=== PATIENT | female | born 1965 | race Caucasian/White ===

== ENCOUNTER → 2016-05-29 | Outpatient (CLI) | payer OTHER ==
--- NOTE | 2016-05-29 14:22 | DIAGNOSTIC IMAGING REPORT ---
LYMPHOSCINTIGRAPHY CLINICAL HISTORY: Right breast cancer. PROCEDURE: Using standard sterile technique, 4 intradermal and one deep injection of 0.5 mCi of Lymphoseek was placed in the right breast. The patient tolerated the procedure well. There were no immediate complications. The patient was subsequently transported to the surgical suite. No imaging was obtained at the referring physician's request. IMPRESSION: Injection of 0.5 mCi of Lymphoseek in the right breast. Electronically signed by: David Kiran M.D. 05/29/2016 2:21 PM Dictated Date/Time: 05/29/2016 2:21 PM
== END | disposition home or self-care (01) ==
LOC: C.NUCL 08:23
PROVIDERS: ATTEND Surgery
DX: C50.911 Malignant neoplasm of unspecified site of right female breast (principal)

== ENCOUNTER 2022-06-24 03:30 | Inpatient (IN) ==
[2022-06-24] MEDS ORDERED: fentaNYL citrate PF 100 MCG/2 ML VIAL IV STA (03:39)
--- NOTE | 2022-06-24 03:44 | Emergency Department Note ---
History of Present Illness General Chief complaint: Cardiac Assessment Time Seen by Provider: 06/24/22 03:32 History of Present Illness 57-year-old female presents emergency department with chest and back pain that started earlier this evening. Patient today had adjustments with a chiropractor in her back and had her back cracked. Patient then was at [facility] emergency department for SVT and received a medication that lowered her heart rate. Patient reportedly was told that she may have had an elevation in her troponin and they wanted to repeat it however her and her decided to leave. Patient called EMS tonight for substernal chest pressure and back pain. Patient denies arm pain jaw pain shortness of breath nausea vomiting. Patient has a prior history of SVT no other cardiac history. Patient was given 481 mg aspirin prior to arrival she was given 2 nitro prior to arrival he states the pain is intermittent spasm-like pain in her chest and back. There were no other mitigating or alleviating factors Allergies Allergy/AdvReac Type Severity Reaction Status Date / Time No Known Allergies Allergy Unverified 06/24/22 04:57 Past Med/Surg History Social History Smoking Status: Current every day smoker Tobacco Type: Cigarettes Feels Safe at Home: Yes Immunizations: Past medical history includes SVT, breast cancer Review of Systems A total of 10 systems reviewed and were otherwise negative Cardiovascular: + chest pain Physical Exam Vital Signs Vital Signs - 24 hr 06/24/22 03:34 06/24/22 03:34 06/24/22 03:37 Pulse Rate 83 91 H Pulse Rate from SpO2 Sensor Pulse Rhythm Regular Respiratory Rate 24 Blood Pressure Blood Pressure Mean Pulse Oximetry 96 Oxygen Delivery Method Room Air Sepsis Recent Fever Within 48 Hours No Sepsis New/Unexplained Change in Mental Status N/A Sepsis Action Taken by Nursing No Action Required 06/24/22 04:00 06/24/22 04:33 06/24/22 05:02 Pulse Rate 86 91 H 89 Pulse Rate from SpO2 Sensor 88 90 Pulse Rhythm Respiratory Rate 19 23 24 Blood Pressure 133/75 119/74 138/79 Blood Pressure Mean 94 89 98 Pulse Oximetry 94 96 95 Oxygen Delivery Method Room Air Room Air Room Air Sepsis Recent Fever Within 48 Hours Sepsis New/Unexplained Change in Mental Status Sepsis Action Taken by Nursing 06/24/22 05:30 Pulse Rate 94 H Pulse Rate from SpO2 Sensor 95 H Pulse Rhythm Respiratory Rate 24 Blood Pressure 121/73 Blood Pressure Mean 89 Pulse Oximetry 92 Oxygen Delivery Method Room Air Sepsis Recent Fever Within 48 Hours Sepsis New/Unexplained Change in Mental Status Sepsis Action Taken by Nursing GENERAL: Patient is awake alert in no acute distress patient is resting comfortably and showing no signs of anxiety EYES: The conjunctivae are clear. The pupils are round and reactive. EARS, NOSE, MOUTH AND THROAT: The nose is without any evidence of any deformity. Mucous membranes are moist. Tongue is midline. NECK: The neck is nontender and supple. RESPIRATORY: Normal respiratory effort is noted there is no evidence of wheezing rhonchi or rales CARDIOVASCULAR: Regular rate and rhythm noted there no murmurs rubs or gallops normal S1 normal S2. GASTROINTESTINAL: The abdomen is soft. Abdomen is nontender. BACK: No midline tenderness or or step-off noted range of motion in flexion extension as well as rotation no signs of muscle spasm noted MUSCULOSKELETAL/EXTREMITIES: There is no evidence of gross deformity full range of motion is noted in the hips and shoulders. Calves are nontender SKIN: There is no obvious evidence of any rash. There are no petechiae, pallor or cyanosis noted. NEUROLOGIC: Patient is awake alert and oriented x3 strength is symmetric Psych normal affect Course Reevaluation(s) Reevaluation #1: Patient resting in no distress. Patient has an elevated troponin, started on IV heparin, patient has received aspirin and nitro and was given IV fentanyl in the emergency department Time: 04:33 Consultations Consultation #1: Case was discussed with the [facility] at 440am -we will also add a CT chest; patient will be admitted to the [facility] service Time: 06:05 Administered Medications Heparin Sodium/Dextrose (Heparin Sodium/Dextrose) 25,000 units in 500 mls @ 20 mls/hr IV .Q24H [facility]; Protocol Stop: 07/24/22 04:59 Last Admin: 06/24/22 05:03 Dose: 1,000 units/hr, 20 mls/hr Documented By: OLIVIA Co-signed By: KURT Discontinued Medications Fentanyl Citrate (Fentanyl Citrate 100 Mcg/2 Ml Vial) 50 mcg IV NOW STA Stop: 06/24/22 03:40 Last Admin: 06/24/22 03:48 Dose: 50 mcg Documented By: KURT Heparin Sodium (Porcine) (Heparin Sod (Porcine) 1000 Unit/Ml) 4,000 units IV NOW ONE Stop: 06/24/22 05:01 Last Admin: 06/24/22 05:03 Dose: 4,000 units Documented By: OLIVIA Co-signed By: KURT Heparin Sodium/Dextrose (Heparin Iv Adult Wt-Based Standard With Bolus Protocol) 1 each IV NOW STA; Protocol Stop: 06/24/22 04:33 Last Admin: 06/24/22 05:03 Dose: Not Given Documented By: OLIVIA Miscellaneous Information (Patient's Allergy Info Needs Entered) 1 each N/A NOW STA Stop: 06/24/22 04:49 Last Admin: 06/24/22 05:03 Dose: 1 each Documented By: OLIVIA Critical Care Time Critical Care Time: Yes Total Critical Care Time: 35 I have personally spent greater than 35 minutes of critical care time in the direct management of this patient. This includes bedside care, interpretation of diagnostic studies, and testing, discussion with consultants, patient, and family members, and other required patient management activities. These minutes are in excess of all separately billable procedures. Medical Decision Making Medical Records Attestation: I reviewed the patient's medical records. Home Medications Current Medication List: was personally reviewed by me Laboratory Data Attestation: I reviewed the patient's lab results. Patient has a mild leukocytosis and an elevated troponin 06/24/22 03:35 06/24/22 03:35 Lab Results 06/24/22 06/24/22 06/24/22 Range/Units 03:35 03:35 03:35 WBC 12.46 H (4.8-10.8) K/ul RBC 4.65 (4.20-5.40) M/uL Hgb 13.1 (12.0-16.0) g/dl Hct 39.2 (37.0-47.0) % MCV 84.3 (80.0-100.0) fL MCH 28.2 (25.0-34.0) pg MCHC 33.4 (32.0-36.0) g/dL RDW Std Deviation 41.9 (36.4-46.3) fL RDW Coeff of Conrado 13.7 (11.5-14.5) % Plt Count 245 (130-400) K/uL MPV 10.8 (9.4-12.4) fL Immature Gran % (Auto) 0.4 % Neut % (Auto) 76.6 % Lymph % (Auto) 13.7 % [place] % (Auto) 6.9 % Eos % (Auto) 1.9 % Baso % (Auto) 0.5 % Neut # (Auto) 9.54 H (1.40-6.50) K/uL Lymph # (Auto) 1.71 (1.2-3.4) K/uL [place] # (Auto) 0.86 H (0.11-0.59) K/uL Eos # (Auto) 0.24 (0-0.50) K/uL Baso # (Auto) 0.06 (0-0.2) K/uL Immature Gran # (Auto) 0.05 (0.01-0.20) K/uL PT 10.3 (9.0-12.0) Seconds INR 1.0 (0.9-1.1) APTT 27.8 (21.0-31.0) Seconds PTT Ratio 1.0 Sodium 140 (136-145) mmol/L Potassium 4.2 (3.5-5.1) mmol/L Chloride 110 H (98-107) mmol/L Carbon Dioxide 23 (21-32) mmol/L Anion Gap 7 (3-11) BUN 15 (6-23) mg/dl Creatinine 0.83 (0.6-1.2) mg/dl Est Cr Clr Drug Dosing Not Reportable Est GFR ( Amer) 89.5 ml/min Est GFR (Non-Af Amer) 77.2 ml/min BUN/Creatinine Ratio 18.1 (10-20) Glucose 116 H (70-99(Fasting)) mg/dl Calcium 8.8 (8.5-10.1) mg/dl Total Bilirubin 0.5 (0.2-1.0) mg/dl AST 19 (13-39) U/L ALT 15 (7-52) U/L Alkaline Phosphatase 78 (34-104) U/L Troponin I High Sens 681.3 H* (0-14) pg/ml Total Protein 6.7 (6.0-8.3) gm/dl Albumin 4.3 (3.4-5.0) gm/dl Globulin 2.4 L (2.5-4.0) gm/dl Albumin/Globulin Ratio 1.8 (0.9-2) Lipase 17 (11-82) U/L SARS-CoV-2, RNA, NAAT (NEGATIVE) 06/24/22 Range/Units 05:06 WBC (4.8-10.8) K/ul RBC (4.20-5.40) M/uL Hgb (12.0-16.0) g/dl Hct (37.0-47.0) % MCV (80.0-100.0) fL MCH (25.0-34.0) pg MCHC (32.0-36.0) g/dL RDW Std Deviation (36.4-46.3) fL RDW Coeff of Conrado (11.5-14.5) % Plt Count (130-400) K/uL MPV (9.4-12.4) fL Immature Gran % (Auto) % Neut % (Auto) % Lymph % (Auto) % [place] % (Auto) % Eos % (Auto) % Baso % (Auto) % Neut # (Auto) (1.40-6.50) K/uL Lymph # (Auto) (1.2-3.4) K/uL [place] # (Auto) (0.11-0.59) K/uL Eos # (Auto) (0-0.50) K/uL Baso # (Auto) (0-0.2) K/uL Immature Gran # (Auto) (0.01-0.20) K/uL PT (9.0-12.0) Seconds INR (0.9-1.1) APTT (21.0-31.0) Seconds PTT Ratio Sodium (136-145) mmol/L Potassium (3.5-5.1) mmol/L Chloride (98-107) mmol/L Carbon Dioxide (21-32) mmol/L Anion Gap (3-11) BUN (6-23) mg/dl Creatinine (0.6-1.2) mg/dl Est Cr Clr Drug Dosing Est GFR ( Amer) ml/min Est GFR (Non-Af Amer) ml/min BUN/Creatinine Ratio (10-20) Glucose (70-99(Fasting)) mg/dl Calcium (8.5-10.1) mg/dl Total Bilirubin (0.2-1.0) mg/dl AST (13-39) U/L ALT (7-52) U/L Alkaline Phosphatase (34-104) U/L Troponin I High Sens (0-14) pg/ml Total Protein (6.0-8.3) gm/dl Albumin (3.4-5.0) gm/dl Globulin (2.5-4.0) gm/dl Albumin/Globulin Ratio (0.9-2) Lipase (11-82) U/L SARS-CoV-2, RNA, NAAT NEGATIVE (NEGATIVE) Imaging Data Attestation: I personally reviewed and interpreted this imaging study as follows: My Impression: Chest x-ray interpreted by me negative for mediastinum no obvious effusion no pneumothorax ECG Data Attestation: I personally reviewed and interpreted this ECG as follows: Additional Comments: EKG interpreted by me normal sinus rhythm rate of 84 nonspecific T wave abnormality normal intervals normal axis no obvious ST segment elevation or depression Telemetry was ordered by me, interpreted as normal sinus rhythm rate of 82 MDM Narrative Medical decision making differential diagnosis includes angina, unstable angina, acute coronary syndrome, acute [place], musculoskeletal chest and back pain, pleurisy, electrolyte abnormality Plan is to check labs, EKG, chest x-ray External medical records were reviewed from [facility] gave me report at bedside Patient has a heart score of 5 Patient has an elevated troponin, has been given aspirin prior to arrival, nitro; will be started on IV heparin Patient requires admission for acute coronary syndrome Impression & Plan Acute non-ST elevation myocardial infarction (NSTEMI), Chest pain Discharge Plan Visit Data Chief Complaint: Cardiac Assessment ED Provider: Yvan Carrion Discharge Problem: Acute non-ST elevation myocardial infarction (NSTEMI), Chest pain Patient Disposition: Admitted As Inpatient Forms Stand Alone Forms: My [facility] Referrals Referrals: Kalyan Biggs [Non-Staff] -
[2022-06-24 03:59] LABS: Basophils # (auto) 0.06 K/uL (0-0.2); Basophils % (auto) 0.5 %; Eosinophils # (auto) 0.24 K/uL (0-0.50); Eosinophils % (auto) 1.9 %; Hematocrit (blood only) 39.2 % (37.0-47.0); Hemoglobin 13.1 g/dl (12.0-16.0); Immature Granulocytes # (auto) 0.05 K/uL (0.01-0.20); Immature Granulocytes % (auto) 0.4 %; Lymphocytes # (auto) 1.71 K/uL (1.2-3.4); Lymphocytes % (auto) 13.7 %; Mean Corpuscular Hemoglobin 28.2 pg (25.0-34.0); Mean Corpuscular Hgb Conc 33.4 g/dL (32.0-36.0); Mean Corpuscular Volume 84.3 fL (80.0-100.0); Mean Platelet Volume 10.8 fL (9.4-12.4); Monocytes # (auto) 0.86 K/uL (0.11-0.59); Monocytes % (auto) 6.9 %; Neutrophils # (auto) 9.54 K/uL (1.40-6.50); Neutrophils % (auto) 76.6 %; Platelet Count 245 K/uL (130-400); RDW Coefficient of Variation 13.7 % (11.5-14.5); RDW Standard Deviation 41.9 fL (36.4-46.3); Red Blood Count 4.65 M/uL (4.20-5.40); White Blood Count 12.46 K/ul (4.8-10.8)
[2022-06-24 04:18] LABS: Alanine Aminotransferase 15 U/L (7-52); Albumin Globulin Ratio 1.8 (0.9-2); Albumin Level 4.3 gm/dl (3.4-5.0); Alkaline Phosphatase 78 U/L (34-104); Anion Gap 7 (3-11); Aspartate Aminotransferase 19 U/L (13-39); BUN Creatinine Ratio 18.1 (10-20); Bilirubin,Total 0.5 mg/dl (0.2-1.0); Blood Urea Nitrogen 15 mg/dl (6-23); Calcium 8.8 mg/dl (8.5-10.1); Carbon Dioxide 23 mmol/L (21-32); Chloride 110 mmol/L (98-107); Est GFR (African American) 89.5 ml/min; Est GFR (Non-African American) 77.2 ml/min; Globulin 2.4 gm/dl (2.5-4.0); Glucose 116 mg/dl (70-99(Fasting)); Lipase 17 U/L (11-82); Potassium 4.2 mmol/L (3.5-5.1); Sodium 140 mmol/L (136-145); Total Protein 6.7 gm/dl (6.0-8.3)
[2022-06-24 04:28] LABS: Troponin I High Sensitivity 681.3 pg/ml (0-14)
[2022-06-24] MEDS ORDERED: Heparin IV Adult Wt-Based Standard WITH Bolus Protocol IV STA (04:32)
[2022-06-24 04:34] LABS: Partial Thromboplastin Time 27.8 Seconds (21.0-31.0); Prothrombin Time 10.3 Seconds (9.0-12.0)
[2022-06-24] MEDS ORDERED: HEPARIN SOD (PORCINE) 1000 UNIT/ML IV ONE ×2 (04:47→05:00)
[2022-06-24] MEDS ORDERED: Patient's ALLERGY Info needs ENTERED STA (04:48)
--- NOTE | 2022-06-24 04:54 | History & Physical Report ---
Date of Service June 24, 2022 Assessment & Plan (1) Pleuritic chest pain: Plan: 57 y/o female w/ PMHx of SVT, tobacco use, and breast cancer who presents w/ new pleuritic chest pressure that radiates to her back. CTA PE protocol pending. Recent chiropractic treatment noted. ddx: msk, postviral pericarditis, aortic dissection, NSTEMI Has risk factors such as tobacco use. Started on Heparin bolus and drip in ED. Check a1c, lipids ECG w/o ST elevations. TTE Consider aspirin/statin Plan FEN/GI: NPO. NSS 80/hr x 2 bags. anticoag: heparin drip code: full dispo: med tele History of Present Illness Chief Complaint: chest pain Primary Care Provider: Enrike Saldaña 57 y/o female w/ PMHx of SVT, tobacco use, and breast cancer who had SVT most of yesterday during the day. Overnight, she woke up w/ new pleuritic midsternal chest pain described as pressure. It radiates to her back. She had 10/10 pain w/ taking deep breaths and felt dyspneic because of this, so she called EMS. She denies other associated symptoms. She has had recent URI symptoms w/ mild n onprod cough. She had back adjustment from chiropractor yesterday. Current pleuritic pain is 5/10. She is a current smoker. She denies hx of VTE. Patient went to [place] ED yesterday for her SVT and received treatemnt. She left AMA before her second trop was drawn. Reports hx of gastric ulcers in family. ED course: trop elev to 681.3. Heparin bolus and standard drip was started. Allergies Allergy/AdvReac Type Severity Reaction Status Date / Time No Known Allergies Allergy Unverified 06/24/22 04:57 Past Med/Surg History Medical History (Updated 06/24/22 @ 06:55 by Silvano Sahni MD) History of breast cancer Social History Smoking Status: Current every day smoker Tobacco Type: Cigarettes Second Hand Exposure: No; Do You Dip or Chew Tobacco: No; Tobacco Cessation Education Requested by Patient: No Hx Alcohol Use: No Hx Substance Use: No Preferred Language: Arabic Communication Ability: Effective Public Address Announcer Required: No Beliefs That Will Affect Care: None Current Living Situation: Alone and Spouse Other Information That Helps Us Care for You: No Feels Safe at Home: Yes Safety Concerns: Feels Safe At This Time Assistive Devices: None Review of Systems Review of Systems: All systems reviewed & are unremarkable except as noted in HPI & below Physical Exam Physical Exam: General: Grossly A&O. NAD. Cooperative. HEENT: Atraumatic, normocephalic. EOMI Pulm: CTAB. -wheezes, -rales, -rhonchi. No respiratory distress. Cardiac: RRR, 3/6 systolic murmur, chronic per patient. Radial pulses intact and symmetrical. No LE edema. Abdominal: Nontender, nondistended, soft. Msk: Moving all extrem. No reproducible sternal ttp. Results & Data Results & Data ([facility]) Vital Signs (Past 12 Hours) Vital Signs Pulse Resp Pulse Ox O2 Del Method 06/24/22 03:37 91 H 06/24/22 03:34 83 24 96 Room Air Laboratory Results Cardiac Enzymes 06/24/22 Range/Units 03:35 AST 19 (13-39) U/L Troponin I High Sens 681.3 H* (0-14) pg/ml Coagulation 06/24/22 Range/Units 03:35 PT 10.3 (9.0-12.0) Seconds APTT 27.8 (21.0-31.0) Seconds CBC 06/24/22 Range/Units 03:35 WBC 12.46 H (4.8-10.8) K/ul RBC 4.65 (4.20-5.40) M/uL Hgb 13.1 (12.0-16.0) g/dl Hct 39.2 (37.0-47.0) % Plt Count 245 (130-400) K/uL Neut # (Auto) 9.54 H (1.40-6.50) K/uL Lymph # (Auto) 1.71 (1.2-3.4) K/uL [place] # (Auto) 0.86 H (0.11-0.59) K/uL Eos # (Auto) 0.24 (0-0.50) K/uL Baso # (Auto) 0.06 (0-0.2) K/uL Comprehensive Metabolic Panel 06/24/22 Range/Units 03:35 Sodium 140 (136-145) mmol/L Potassium 4.2 (3.5-5.1) mmol/L Chloride 110 H (98-107) mmol/L Carbon Dioxide 23 (21-32) mmol/L BUN 15 (6-23) mg/dl Creatinine 0.83 (0.6-1.2) mg/dl Glucose 116 H (70-99(Fasting)) mg/dl Calcium 8.8 (8.5-10.1) mg/dl AST 19 (13-39) U/L ALT 15 (7-52) U/L Alkaline Phosphatase 78 (34-104) U/L Total Protein 6.7 (6.0-8.3) gm/dl Albumin 4.3 (3.4-5.0) gm/dl Intake and Output 06/23/22 06/23/22 06/24/22 14:59 22:59 06:59 Other: Weight 64.467 kg Weight Measurement Method Built in [facility] Patient Weight 06/24/22 06:59 Weight 64.467 kg Code Status & VTE Plan Code Status full VTE Prophylaxis Plan VTE Prophylaxis will be ordered: Yes Supervising Physician Co-Signing Physician Notes Attending addendum: I have physically seen this patient, have supervised the medical residents activities, and agree with the H&P unless as otherwise noted. Assessment and Plan: NSTEMI/tachycardia with palpitations- The patient will be admitted to telemetry for serial cardiac enzymes, serial EKG's, cardiac rhythm monitoring and a 2-D echocardiogram with Dopplers. Question whether elevated troponin is secondary to increased heart rate and/or ischemia Continue heparin IV drip following bolus as begun in the ED Check hemoglobin A1c and fasting lipid panel Aspirin 81 mg daily Order CTA of chest due to character of pain There is a family history of ulcers and a sister and mother. May need GI work- up if work-up above is negative Breast cancer- Initially diagnosed 5 years ago, and just recently completed tamoxifen earlier this year Right sacroiliac pain- Patient reports developed significant pain over this area when she helped move her sister 1 month ago in [place] She has been seen by chiropractic May need additional imaging Resident Activity Tracking Resident Involvement: Resident Care Provided Care Provided: Adult [facility]
[2022-06-24] MEDS ORDERED: HEPARIN SODIUM/DEXTROSE 25,000 UNITS/500 ML BAG IV SCH (05:00)
[2022-06-24] MEDS ORDERED: OPTIRAY 320 500ml IV ONE (06:36)
--- NOTE | 2022-06-24 07:20 | CT Scan Report ---
CT angio chest PE protocol CLINICAL HISTORY: PE TECHNIQUE: Multidetector row helical CT of the chest was performed with angiographic protocol. Lau l and sagittal reformations were obtained. Coronal and sagittal MIPS were obtained from the axial marissa a set and were submitted for review. Automated dose lowering techniques and/or adjustment according to patient size were utilized for this exam. CT DOSE: 246.17 mGy.cm Comparison: Comparison is made to chest radiograph 06/24/2022 FINDINGS: Lungs and pleura: There is a 3 mm pulmonary nodule in the right upper lobe (series 4 image 25). Heart and pericardium: Heart size is normal. No pericardial effusion. Vessels: No evidence of pulmonary embolism. Mild atherosclerotic calcifications are seen. Mediastinum and alysa: Unremarkable. Chest wall and lower neck: Unremarkable. Abdomen: A hiatal hernia is seen. Bones: Unremarkable. IMPRESSION: 1. No pulmonary embolus is seen. 2. Small pulmonary nodule as above. According to Fleischner criteria, no follow-up is required in lo w risk patients, in high-risk patients, a 12 month follow-up CT can be optionally performed. ACT 112: Negative or not required by law. Electronically signed by: Christopher Nunes M.D. 06/24/2022 7:18 AM
[2022-06-24] MEDS: SODIUM CHLORIDE 0.9% 1000ML 1,000 ML IV SCH ×2 (07:27→21:16)
--- NOTE | 2022-06-24 07:51 | XRay Report ---
XR chest 1V portable CLINICAL HISTORY: Chest pain, nonspecific TECHNIQUE: Single frontal radiograph of the chest was obtained. Comparison: None available at the time of this dictation. FINDINGS: No lines and tubes are seen. Cardiomegaly is noted. The lungs are clear. No evidence of pleural effus ion or pneumothorax. IMPRESSION: No acute chest disease. ACT 112: Negative or not required by law. Electronically signed by: Christopher Nunes M.D. 06/24/2022 7:49 AM
[2022-06-24 07:54] LABS: Chol HDL Ratio 2.6 (0-5)
[2022-06-24 08:24] LABS: Estimated Average Glucose 123 mg/dl; Hemoglobin A1C 5.9 % (4.5-5.6)
[2022-06-24] MEDS ORDERED: KETOROLAC TROMETHAMINE 15 MG/ML VIAL IV PRN (12:37)
[2022-06-24] MEDS ORDERED: ACETAMINOPHEN 325 MG TAB PO PRN (12:38)
[2022-06-24 12:49] LABS: Partial Thromboplastin Ratio 2.7
[2022-06-24 13:02] LABS: Partial Thromboplastin Time 74.9 Seconds (21.0-31.0)
--- NOTE | 2022-06-24 16:23 | XCELERA ---
[id number]
[2022-06-24] MEDS: HEPARIN SOD 5,000 UNIT/0.5 ML VIAL SQ SCH (21:32)
--- NOTE | 2022-06-24 22:31 | Billing Data ---
Date of Service June 24, 2022 Coding Level of Care Code 04033 INT INP/OBS CARE
[2022-06-25 07:27] LABS: Hemoglobin 11.6 g/dl (12.0-16.0); Mean Corpuscular Hgb Conc 34.1 g/dL (32.0-36.0); Mean Corpuscular Volume 82.1 fL (80.0-100.0); Mean Platelet Volume 11.1 fL (9.4-12.4); Platelet Count 182 K/uL (130-400); RDW Coefficient of Variation 13.4 % (11.5-14.5); RDW Standard Deviation 40.6 fL (36.4-46.3); Red Blood Count 4.14 M/uL (4.20-5.40); White Blood Count 4.84 K/ul (4.8-10.8)
[2022-06-25 07:45] LABS: BUN Creatinine Ratio 18.5 (10-20); Calcium 8.2 mg/dl (8.5-10.1); Creatinine Clr Calc Pharmacy 84.8 ml/min; Est GFR (African American) 112.6 ml/min; Est GFR (Non-African American) 97.2 ml/min; Potassium 3.5 mmol/L (3.5-5.1)
[2022-06-25] MEDS: HEPARIN SOD 5,000 UNIT/0.5 ML VIAL SQ SCH (08:24)
--- NOTE | 2022-06-25 09:29 | Cardiology Consultation ---
Date of Consultation June 25, 2022 Assessment & Plan (1) Aortic stenosis: (2) Paroxysmal SVT (supraventricular tachycardia): (3) Aortic regurgitation: (4) Pleuritic chest pain: (5) Elevated troponin: (6) Tobacco abuse: Plan ASSESSMENT/PLAN: 1. Severe aortic stenosis: Decreased exercise tolerance and dyspnea on exertion as an outpatient. Discussed diagnosis. Aortic valve is not well visualized but suspect bicuspid aortic valve given young age. Recommend transesophageal echo for definitive evaluation, which may then prompt evaluation of first-degree relatives if found to be congenitally abnormal valve. Recommend aortic valve replacement. Recommend cardiac catheterization. Risks and benefits discussed with her in detail. Transesophageal echo also discussed with her. She was agreeable to undergo the procedures but wished to have them done as an outpatient. 2. SVT: Requested ECG from [facility] for review. Recommend electrophysiology consultation with consideration of EP study and ablation. She is agreeable. She would like to have this done as an outpatient. SVT has occurred less than once yearly. Can start low-dose beta-demetra in the meantime. 3. Elevated troponin: Likely demand ischemia in the setting of SVT and severe aortic stenosis. No angina. Recommend aspirin 81 mg daily while awaiting coronary angiography. 4. Pleuritic chest pain: Chest pain is not consistent with ischemic heart disease or aortic stenosis. 5. Tobacco abuse: Recommended that she stop smoking. 6. Disposition: Suggested that her DAMION and cardiac catheterization can be performed while hospitalized. She declines and prefers to follow up as an outp atient in the next week or so. Recommended 911 for recurrent SVT symptoms, different or worsening chest pain, or shortness of breath. Cardiology outpatient office asked to set up DAMION and cardiac catheterization next week. Also requested electrophysiology consultation in the outpatient setting for consideration of EP study and ablation. Plan of care discussed with primary hospitalist, Dr. Jo. Highly complex medical issues. Thank you for allowing me to participate in the care of your patient. Please call for any other questions or concerns. Sincerely, Kartik Adrian M.D. History of Present Illness Reason for Consultation: Severe aortic stenosis Requesting Physician: Tamela Jo MD Attending Physician: Tamela Jo MD History of Present Illness Mrs. Means is a very pleasant 57-year-old female with a history significant for SVT, right-sided breast cancer (s/p XRT and lumpectomy), and tobacco abuse. She was hospitalized on 06/24/2022 after an episode of SVT noted at [facility]. She states that she has been experiencing intermittent palpitations and SVT for years. Her first episode was approximately 2015 while visiting her daughter at [place]. She went to the emergency department and received intravenous medication which quickly resolved the issue (presumably adenosine). Approximately 2 years later, she had another episode requiring intravenous medication. Approximately 2 years later, she was camping and had another episode and placed ice on her face, which resolved the palpitations. On 06/23/2022, she had an episode at approximately 1:30 PM which persisted for several hours. At approximately 8 PM she went to [facility]. She initially tried using ice and other Valsalva maneuvers such as squatting, but no improvement was noted. In the emergency department, she was told that she had SVT and received intravenous medication, once again presumably adenosine, as it quickly acted and corrected the arrhythmia. She recalls the ER physician mentioning a procedure to treat this. Her troponin was elevated but she did not want to wait for trending of the troponin and therefore left. Her daughter then convinced her to come to this hospital for further evaluation and sedation, as she was experiencing substernal chest discomfort described as a pressure was only pleuritic in nature, occurring with a deep breath and then would resolve with exhalation. She believes it is due to the fact that she was having back pain after helping move her sister out of her home. She then went to a chiropractor, who adjusted her back. She has chronic dyspnea with exertion. Exercise tolerance has declined over the past year. She denies shortness of breath at rest, orthopnea, syncope, near syncope, edema, or bleeding such as melena, hematochezia, or hematuria. She has not had any further chest discomfort. She has not had any further palpitations during this hospital stay. She was told that she had a murmur throughout her entire life. Her children have murmurs. Her sister was recently diagnosed with a murmur. She does not recall ever undergoing echo. She recalls having a cardiac catheterization 5 or 6 years ago in [place] but does not recall the indication and does not recall having any CAD. Review of systems: As above. Review of systems otherwise negative/unremarkable. Family history: Father in his 60s, but had CAD and underwent PCI and CABG. Paternal grandfather in his 60s. Sister newly diagnosed murmur in 2022. Social history: She has smoked since age of 11, currently 1 pack/day. No significant alcohol or drug abuse. She is and lives at home with her . 2 children (son and daughter). 5 grandchildren. Her presented to the bedside during consultation. Allergies Allergy/AdvReac Type Severity Reaction Status Date / Time No Known Allergies Allergy Unverified 06/24/22 04:57 Home Medications Medication Instructions Recorded Confirmed Type aspirin 81 mg capsule 81 mg PO DAILY #30 caps 06/25/22 Rx metoprolol succinate 25 mg 25 mg PO DAILY #30 tabs 06/25/22 Rx tablet,extended release 24 hr Patient History Medical History History of breast cancer Paroxysmal SVT (supraventricular tachycardia) Surgical History (Updated 06/25/22 @ 09:23 by Kingsley Adrian MD) S/P lumpectomy, right breast Social History Smoking Status: Current every day smoker Tobacco Type: Cigarettes Second Hand Exposure: No; Hx Alcohol Use: No Hx Substance Use: No Preferred Language: Moroccan Communication Ability: Effective Building Maintenance Superintendent Required: No Beliefs That Will Affect Care: None Current Living Situation: Alone and Spouse Feels Safe at Home: Yes Assistive Devices: None Physical Exam Physical Exam: Gen.: No acute distress. Alert and oriented. HEENT: Anicteric sclera. Neck: No JVD. Bilateral bruits vs radiation of cardiac murmur. Normal carotid upstrokes bilaterally. Cardiac: No ventricular heave. Regular rate and rhythm. Normal S1-S2. 2/6 late peaking systolic ejection murmur heard best at right upper sternal border. No rubs or gallops. Pulmonary: Clear to auscultation bilaterally without wheezes, rales, or rhonchi. Abdomen: Soft, nontender, nondistended, with normoactive bowel sounds. No bruits noted. Extremities: 1+ radial pulses bilaterally. 2+ posterior tibialis pulses bilaterally. No edema or cyanosis. Psychiatric: Affect appears appropriate. Results & Data ([facility]) Vital Signs (Past 12 Hours) Vital Signs Temp Pulse Pulse Resp BP Pulse Ox O2 Del Method 06/25/22 08:16 36.7 C 73 18 136/69 94 Room Air 06/25/22 07:46 Room Air 06/25/22 02:53 36.9 C 78 18 116/78 92 Room Air 06/25/22 00:16 73 06/24/22 22:49 37 C 77 18 125/73 93 Room Air Laboratory Results Laboratory Results - last 24 hr 06/24/22 06/24/22 06/25/22 11:39 16:12 06:58 WBC 4.84 RBC 4.14 L Hgb 11.6 L Hct 34.0 L MCV 82.1 MCH 28.0 MCHC 34.1 RDW Std Deviation 40.6 RDW Coeff of Conrado 13.4 Plt Count 182 MPV 11.1 APTT 74.9 H* PTT Ratio 2.7 Sodium Potassium Chloride Carbon Dioxide Anion Gap BUN Creatinine Est Cr Clr Drug Dosing Est GFR ( Amer) Est GFR (Non-Af Amer) BUN/Creatinine Ratio Glucose Calcium Troponin I High Sens 436.3 H* D 06/25/22 06:58 WBC RBC Hgb Hct MCV MCH MCHC RDW Std Deviation RDW Coeff of Conrado Plt Count MPV APTT PTT Ratio Sodium 140 Potassium 3.5 Chloride 112 H Carbon Dioxide 22 Anion Gap 6 BUN 12 Creatinine 0.65 Est Cr Clr Drug Dosing 84.8 Est GFR ( Amer) 112.6 Est GFR (Non-Af Amer) 97.2 BUN/Creatinine Ratio 18.5 Glucose 103 H Calcium 8.2 L Troponin I High Sens Diagnostic Findings Telemetry personally reviewed: Sinus rhythm. No arrhythmia. History and physical report reviewed. Echo 06/24/2022: Normal left ventricular size and systolic function. EF 65- 70%. Normal wall motion. No LVH. Severe . Mild to moderate AI. Normal RVSP. ECG personally reviewed 06/24/2022 at 3:35 a.m.: Sinus rhythm 84 bpm. Nonspecific T-wave abnormality. Labs reviewed and notable for high sensitivity troponin of 681 on presentation and trending downward. Normal renal function. Mild anemia. CTA chest 06/24/2022: No PE. Medications Administered Current Inpatient Medications Acetaminophen (Acetaminophen 325 Mg Tab) 650 mg PO Q4H PRN PRN Reason: Pain Stop: 07/24/22 12:37 Last Admin: 06/24/22 13:35 Dose: 650 mg Heparin Sodium (Porcine) (Heparin Sod 5,000 Unit/0.5 Ml Vial) 5,000 units SQ Q12 MAGEN Stop: 07/24/22 20:59 Last Admin: 06/25/22 08:24 Dose: 5,000 units Ketorolac Tromethamine (Ketorolac Tromethamine 15 Mg/Ml Vial) 15 mg IV Q6H PRN PRN Reason: Pain Stop: 06/26/22 12:36 Last Admin: 06/24/22 21:31 Dose: 15 mg PG Care Time/CCT Total # of Minutes Spent Total Time Spent with Patient: Total time spent is greater than 50% in coordination of care (as documented) at patient's floor/unit and/or counseling patient: Coding Level of Care Code 85526 IN/OBS CONSULT LVL 5,80M Diagnoses Aortic stenosis I35.0 Paroxysmal SVT (supraventricular tachycardia) I47.1 Aortic regurgitation I35.1 Pleuritic chest pain R07.81 Elevated troponin R77.8 Tobacco abuse Z72.0
[2022-06-25] MEDS ORDERED: METOPROLOL SUCC 25MG EXT REL TAB PO SCH (09:30)
[2022-06-25] MEDS ORDERED: ASPIRIN 81 MG ECTAB PO SCH (09:30)
--- NOTE | 2022-06-25 13:59 | Discharge Summary ---
Date of Service June 25, 2022 Admission HPI Per Admitting Provider 57 y/o female w/ PMHx of SVT, tobacco use, and breast cancer who had SVT most of yesterday during the day. Overnight, she woke up w/ new pleuritic midsternal chest pain described as pressure. It radiates to her back. She had 10/10 pain w/ taking deep breaths and felt dyspneic because of this, so she called EMS. She denies other associated symptoms. She has had recent URI symptoms w/ mild nonprod cough. She had back adjustment from chiropractor yesterday. Current pleuritic pain is 5/10. She is a current smoker. She denies hx of VTE. Patient went to [facility] yesterday for her SVT and received treatemnt. She left AMA before her second trop was drawn. Reports hx of gastric ulcers in family. ED course: trop elev to 681.3. Heparin bolus and standard drip was started. Principal Diagnosis pleeuritic chest pain, aortic stenosis Discharge Exam The patient is awake, alert and oriented 3, well developed and well nourished, normocephalic and atraumatic, lying in bed and in no acute distress. HEENT--PERRL, EOMI, mucous membranes and oropharynx mildly dry Neck--supple. No JVD. No bruits. Thyroid normal, trachea midline, no adenopathy. Heart--normal S1 and S2.CLARA Lungs--clear bilaterally, no respiratory distress, no accessory muscle use. Abdomen--normal bowel sounds and soft. Mild epigastric and left sided abdominal pain Extremities--no cyanosis or clubbing. No edema. Dermatologic--normal skin turgor, normal color, no abnormal lymph nodes, no rash. Neurologic--cranial nerves II through XII grossly intact. Rheumatologic--normal range of motion. Psychiatric--normal affect. Discharge Data Allergies Allergy/AdvReac Type Severity Reaction Status Date / Time No Known Allergies Allergy Unverified 06/24/22 04:57 Consultations 06/24/22 05:19 ED Decision to Admit Stat 06/24/22 18:08 Consult Cardiology Routine Ordered Studies 06/24/22 05:56 CT angio chest PE protocol Stat Hospital Course (1) Pleuritic chest pain: 57 y/o female w/ PMHx of SVT, tobacco use, and breast cancer who presents w/ new pleuritic chest pressure that radiates to her back. CTA PE protocol pending. Recent chiropractic treatment noted. Now resolved following pain meds (2) Aortic stenosis: Severe aortic stenosis found on ECHO patient endorsed a significant history of heart murmur in family memebers Evaluated by cardiology, who thinks patient may have congenital valvular abnormality She was offered cardiac cath, but she refused and opted for outpatient follow up with cardiology Plan FEN/GI: NPO. NSS 80/hr x 2 bags. anticoag: heparin drip code: full dispo: d/c Total Time Total Time Spent Total Time Spent (In Minutes): 35 Discharge Plan Discharge Items Patient Disposition: Home - Self-Care Reason For Visit: NSTEMI Discharge Diagnosis: non cardiac chest pain Activity: Resume your previous activity Non-emergency contact: Primary Care Provider and [employer] Cooper Call non-emergency contact if: you have any medication questions and your symptoms worsen Follow-up/Referrals: Enrike Saldaña [Primary Care Provider] - Diet: Regular Addtl Attending Provider Instructions: please make appointment to follow up with cardiology regarding further investigation of your severe aortic stenosis Pending Studies at Discharge: No Stand-Alone Forms: My [facility], Smoking Cessation Medications and DC Order Prescriptions: New metoprolol succinate 25 mg tablet extended release 24 hr 25 mg PO DAILY Qty: 30 0RF aspirin 81 mg capsule 81 mg PO DAILY Qty: 30 0RF Discharge Orders: Discharge Order (Routine); Ordered 06/25/22 Ordered By: Tamela Jo Admission Data Admit Date/Time: 06/24/22 06:16 Attending Provider: Tamela oJ Admit Provider: Silvano Sahni Primary Care Provider: Enrike Saldaña Other Providers: Memo Dasilva ; Bryan Batres Other Interventions: Discharge Summary Assessment (RN) Last Done: 06/25/22 10:06 Coding Level of Care Code 81766 INP/OBS DISCH >30 MIN Diagnoses Pleuritic chest pain R07.81 Aortic stenosis I35.0 Time Spent (min) 35
--- NOTE | 2022-06-26 05:56 | Electrocardiogram Report ---
Test Reason : Blood Pressure : / mmHG Vent. Rate : 084 BPM Atrial Rate : 084 BPM P-R Int : 152 ms QRS Dur : 072 ms QT Int : 364 ms P-R-T Axes : 079 029 059 degrees QTc Int : 430 ms Normal sinus rhythm Biatrial enlargement Nonspecific T wave abnormality Abnormal ECG No previous ECGs available Confirmed by Kingsley Adrian ([id number]) on 06/26/2022 5:55:33 AM Referred By: REFERRED SELF Confirmed By:Kingsley Adrian
== END 2022-06-25 10:43 | disposition home or self-care (01) | DRG 204 ==
LOC: ED 03:30 → 2N 06:16 → SUATTDRO 06:16 → 2N 08:43